=== PATIENT | female | born 1945 | race Caucasian/White ===

== ENCOUNTER 2016-11-17 23:43 | Emergency (ER) | payer MEDICARE, OTHER ==
[~2016-11-17] VITALS: Ht 170.2 cm; Wt 94.8 kg
--- OUTSIDE RECORDS SUMMARY | ~2016-11-17 | XMS ---
Demographics + + + | Address | [address] | | | [place] [address] | + + + | Preferred Language | Unknown | + + + | Marital Status | Unknown | + + + | Buddhist Affiliation | Unknown | + + + | Race | Unknown | + + + | Ethnic Group | Unknown | + + + Author + + + | Author | [facility] | + + + | Organization | [facility] | + + + | Address | 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 | | | diabetes | | | | | | | | mellitus | | | | | | | | with other | | | | | | | | diabetic | | | | | | | | neurologic | | | | | | | | al | | | | | | | | complicati | | | | | | | | on | | | | | | +---------+ + + +--------+ + + | Problem | Renal | N28.9 | | | Active | [id number] | | | insufficie | | | | | | | | ncy | | | | | | +---------+ + + +--------+ + + | Problem | Diabetes | E11.9 | | | Active | [id number] | | | mellitus | | | | | | | | type 2 in | | | | | | | | nonobese | | | | | | +---------+ + + +--------+ + + | Problem | HTN | | I10 | | Active | 48711293 | | | (hypertens | | | | | | | | ion) | | | | | | +---------+ + + +--------+ + + | Problem | Current | Z79.52 | | | Active | [id number] | | | chronic | | | | | [address] | | | use of | | | | | | | | systemic | | | | | | | | steroids | | | | | | +---------+ + + +--------+ + + | Problem | Seropositi | M05.9 | | | Active | 279022626 | | | ve | | | | | | | | rheumatoid | | | | | | | | arthritis | | | | | | +---------+ + + +--------+ + + | Problem | Osteoporos | | M81.0 | | Active | 00699650 | | | is | | | | | | +---------+ + + +--------+ + + | Problem | Microcytos | R71.8 | | | Active | [id number] | | | is | | | | | | +---------+ + + +--------+ + + | Problem | Rheumatoid | M06.9 | | | Active | 41033899 | | | arthritis | | | | | | +---------+ + + +--------+ + + | Problem | Bipolar 1 | | F31.9 | | Active | [id number] | | | disorder | | | | | | +---------+ + + +--------+ + + | Problem | Restless | | G25.81 | | Active | 18645341 | | | leg | | | | | | | | syndrome | | | | | | +---------+ + + +--------+ + + | Problem | ASCVD | I25.10 | | | Active | 86231208 | | | (arteriosc | | | | | | | | lerotic | | | | | | | | cardiovasc | | | | | | | | ular | | | | | | | | disease) | | | | | | +---------+ + + +--------+ + + | Problem | Hyperlipid | | E78.5 | | Active | 71322455 | | | emia | | | | | | +---------+ + + +--------+ + + | Problem | Hypertensi | | I10 | | Active | 68385893 | | | on | | | | | | +---------+ + + +--------+ + + | Problem | Chronic | | G89.4 | | Active | 829329393 | | | pain | | | | | | | | syndrome | | | | | | +---------+ + + +--------+ + + | Problem | Immunosupp | D89.9 | | | Active | [id number] | | | ressed | | | | | | | | status | | | | | | +---------+ + + +--------+ + + | Problem | High risk | Z79.899 | | | Active | 252099710 | | | medication | | | | | | | | s (not | | | | | | | | anticoagul | | | | | | | | ants) | | | | | | | | long-term | | | | | | | | use | | | | | | +---------+ + + +--------+ + + | Problem | At risk | Z91.89 | | | Active | [id number] | | | for | | | | | | | | polypharma | | | | | | | | cy | | | | | | +---------+ + + +--------+ + + | Problem | Blood loss | D50.0 | | | Active | 165148886 | | | anemia | | | | | | +---------+ + + +--------+ + + | Problem | Iron | | D50.9 | | Active | 66126787 | | | deficiency | | | | | | | | anemia | | | | | | +---------+ + + +--------+ + + | Problem | Microcytic | D50.9 | | | Active | 029822205 | | | anemia | | | | | | +---------+ + + +--------+ + + | Problem | Hypothyroi | | E03.9 | | Active | 14876959 | | | dism | | | | | | +---------+ + + +--------+ + + | 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 | | | Active | 81531728 | | | ctive | | | | | | | | disorder | | | | | | +---------+ + + +--------+ + + ALLERGIES + + + + +--------+ | Substance | Reaction | Event Type | Date | Status | + + + + +--------+ | Zoloft | Unknown | Drug Allergy | Sep, | Active | + + + + +--------+ | Tegretol XR | Unknown | Drug Allergy | Sep, | Active | + + + + +--------+ | Depakote | Unknown | Drug Allergy | Sep, | Active | + + + + +--------+ SOCIAL HISTORY No smoking Hx information available PLAN OF CARE + +---------+ | Activity | Details | + +---------+ +---+ | | +---+ + + + | Follow Up | 4 Weeks Reason:null | + + + VITAL SIGNS + + + + | Height | 5ft 7in in | 2016-09-22 | + + + + | Weight | 201.2 lbs | 2016-09-22 | + + + + | BMI | 31.51 kg/m2 | 2016-09-22 | + + + + | Temperature | 98.0 degrees Fahrenheit | 2016-09-22 | + + + + | Heart Rate | 69 /min | 2016-09-22 | + + + + | Blood pressure systolic | 151 mm Hg | 2016-09-22 | + + + + | Blood pressure diastolic | 65 mm Hg | 2016-09-22 | + + + + MEDICATIONS + + + + + + + +--------+ | Medicati | Instruct | Dosage | Frequenc | Start | End Date | Duration | Status | | on | ions | | y | Date | | | | + + + + + + + +--------+ | Trazodon | Orally | 1 tablet | 24h | | | | Active | | e 50 MG | Once a | at | | | | | | | | day | bedtime | | | | | | | | | as | | | | | | | | | needed | | | | | | + + + + + + + +--------+ | Carvedil | Orally | 1 | 12h | | | | Active | | ol 12.5 | twice a | | | | | | | | MG | day | | | | | | | + + + + + + + +--------+ | Prevail | | as | | 16 May, | | | Active | | Adult | | directed | | 2016 | | | | | Brief | | | | | | | | | Large - | | | | | | | | + + + + + + + +--------+ | One | | as | | 07 Sep, | | 30 days | Active | | Touch | | directed | | 2015 | | | | | Ultra 0 | | | | | | | | + + + + + + + +--------+ | GlipiZID | Orally | 1 tablet | 24h | | | | Active | | E 5 MG | Once a | | | | | | | | | day | | | | | | | + + + + + + + +--------+ | Latex | | as | | 16 August, | | | Active | | Gloves | | directed | | 2016 | | | | | Medium - | | | | | | | | + + + + + + + +--------+ | Ropiniro | Orally | 1 tablet | 12h | | | | Active | | le HCl 1 | bid | | | | | | | | MG | | | | | | | | + + + + + + + +--------+ | Vitamin | Orally | 1 | | 08 Oct, | 1 Oct, | 90 days | Active | | D | weekly | capsule | | 2015 | 2016 | | | | (Ergocal | | | | | | | | | ciferol) | | | | | | | | | [id number] | | | | | | | | | UNIT | | | | | | | | + + + + + + + +--------+ | Furosemi | Orally | 1 tablet | 12h | | | | Active | | de 40 MG | Twice a | | | | | | | | | day | | | | | | | + + + + + + + +--------+ | Lisinopr | Orally | TAKE 1 | 24h | | | | Active | | il 40 MG | Once a | TABLET | | | | | | | | day | BY MOUTH | | | | | | | | | EVERY | | | | | | | | | DAY | | | | | | + + + + + + + +--------+ | Metformi | Orally | 2 tablet | 12h | | | 30 days | Active | | n HCl | Twice a | with | | | | | | | 500 MG | day | meals | | | | | | + + + + + + + +--------+ | One | | as | | 07 Sep, | | | Active | | Touch | | directed | | 2016 | | | | | Glucomet | | | | | | | | | er 0 | | | | | | | | + + + + + + + +--------+ | Ferrous | | TAKE 1 | | | | 7 | Active | | Sulfate | | TABLET | | | | | | | 325 (65 | | BY MOUTH | | | | | | | Fe) MG | | EVERY | | | | | | | | | DAY | | | | | | + + + + + + + +--------+ | Lamotrig | Orally | 2 | 12h | | | | Active | | ine 25 | Twice a | tablets | | | | | | | MG | day | | | | | | | + + + + + + + +--------+ | Acetamin | Orally | 2 | | | | | Active | | ophen | Every 4 | | | | | | | | 325 MG | hours | | | | | | | | | PRN | | | | | | | + + + + + + + +--------+ | Aspirin | Orally | 1 tablet | 24h | | | | Active | | Low Dose | Once a | | | | | | | | 81 MG | day | | | | | | | + + + + + + + +--------+ | Neomycin | Ophthalm | 1 into | 4h | | | | Active | | -Polymyx | ic every | affected | | | | | | | in-Grami | 4 hrs | eye | | | | | | | cidin | | | | | | | | | 1.75-100 | | | | | | | | | 00-.025 | | | | | | | | + + + + + + + +--------+ | Gabapent | | TAKE 2 | | | | 30 | Active | | in 300 | | CAPS | | | | | | | MG | | (600MG) | | | | | | | | | BY MOUTH | | | | | | | | | THREE | | | | | | | | | TIMES | | | | | | | | | DAILY | | | | | | + + + + + + + +--------+ | Lantus | Subcutan | as | | 01 Nov, | | 30 | Active | | 100 | eous qhs | directed | | 2016 | | day(s) | | | UNIT/ML | | 15 | | | | | | | | | units | | | | | | | | | per day | | | | | | | | | to start | | | | | | + + + + + + + +--------+ | Sulfasal | Orally | 3 tablet | 12h | | | | Active | | azine | twice a | | | | | | | | 500 MG | day | | | | | | | + + + + + + + +--------+ | Nitrogly | Sublingu | | | | | | Active | | cerin | al 1 | | | | | | | | 0.4 MG | tablet | | | | | | | | | sl every | | | | | | | | | 5 | | | | | | | | | minutes | | | | | | | | | X3 PRN | | | | | | | + + + + + + + +--------+ | Amlodipi | Orally | 1 tablet | | 26 Sep, | | 30 | Active | | ne | every HS | | | 2016 | | day(s) | | | Besylate | | | | | | | | | 10 MG | | | | | | | | + + + + + + + +--------+ | Senna | Orally | 2 | 12h | | | | Active | | 8.6 MG | Twice a | tablets | | | | | | | | day | | | | | | | + + + + + + + +--------+ | Levothyr | Orally | 1 tablet | 24h | | | 30 days | Active | | oxine | Once a | | | | | | | | Sodium | day | | | | | | | | 150 MCG | | | | | | | | + + + + + + + +--------+ | Ranitidi | orally | 1 tab | 24h | | | | Active | | ne 150mg | once a | | | | | | | | | day | | | | | | | + + + + + + + +--------+ | A + D | | as | | 16 May, | | | Active | | Personal | | directed | | 2016 | | | | | Care | | | | | | | | | Wipes - | | | | | | | | + + + + + + + +--------+ | Tramadol | Orally | 1 tablet | | | | | Active | | HCl 50 | every 6 | as | | | | | | | MG | hours | needed | | | | | | | | PRN | | | | | | | + + + + + + + +--------+ | Clonidin | Orally | 1 tablet | 8h | | | 30 days | Active | | e HCl | Three | | | | | | | | 0.1 MG | times a | | | | | | | | | day | | | | | | | + + + + + + + +--------+ | One | | as | | 07 Sep, | | | Active | | Touch | | directed | | 2016 | | | | | Lancets | | | | | | | | + + + + + + + +--------+ | Duloxeti | Orally | take 1 | 24h | | | 30 days | Active | | ne HCl | qd | capsule | | | | | | | 60 MG | | by mouth | | | | | | | | | twice | | | | | | | | | daily | | | | | | + + + + + + + +--------+ | PredniSO | Orally | 1 tablet | 24h | | Sep, | | Active | | NE 10 MG | Once a | | | | 2016 | | | | | day | | | | | | | + + + + + + + +--------+ | Oxybutyn | Orally | 1 tablet | 24h | | | | Active | | in | Once a | | | | | | | | Chloride | day | | | | | | | | 5 MG | | | | | | | | + + + + + + + +--------+ | PredniSO | Orally 2 | 1 tablet | | 12 Sep, | Nov, | 30 | Active | | NE 10 mg | tablets | | | 2016 | 2016 | day(s) | | | | a day | | | | | | | | | for 7 | | | | | | | | | days | | | | | | | | | then one | | | | | | | | | tablet | | | | | | | | | per day | | | | | | | + + + + + + + +--------+ | Magnesiu | Orally | 1 tablet | 24h | | | | Active | | m Oxide | Once a | | | | | | | | 400 MG | day | | | | | | | + + + + + + + +--------+ | Multivit | Orally | 1 | 24h | | | | Active | | olivo | once a | | | | | | | | Adults | day | | | | | | | | 50+ | | | | | | | | + + + + + + + +--------+ | Olanzapi | Orally | 1 tablet | 24h | | | | Active | | ne 2.5 | Once a | | | | | | | | MG | day | | | | | | | + + + + + + + +--------+ RESULTS + +--------+ + + | Name | Result | Date | Reference Range | + +--------+ + + | TSH | | 2016-09-22 | | + +--------+ + + | TSH | | | | + +--------+ + + | Lipid Panel | | 2016-09-22 | | + +--------+ + + | Cholesterol, Total | | | | + +--------+ + + | Triglycerides | | | | + +--------+ + + | HDL Cholesterol | | | | + +--------+ + + | VLDL Cholesterol | | | | | Troy | | | | + +--------+ + + | LDL Cholesterol | | | | | Calc | | | | + +--------+ + + | Basic Metabolic | | 2016-09-22 | | | Panel (8) | | | | + +--------+ + + | Calcium, Serum | | | | + +--------+ + + | Glucose, Serum | | | | + +--------+ + + | BUN | | | | + +--------+ + + | Potassium, Serum | | | | + +--------+ + + | Sodium, Serum | | | | + +--------+ + + | Chloride, Serum | | | | + +--------+ + + | Creatinine, Serum | | | | + +--------+ + + | Carbon Dioxide, | | | | | Total | | | | + +--------+ + + | BUN/Creatinine | | | | | Ratio | | | | + +--------+ + + | Erythrocyte | | 2016-09-22 | | | Sedimentation Rate | | | | | (ESR) | | | | + +--------+ + + | ERYTHROCYTE | | | | | SEDIMENTATION RATE | | | | | (ESR) | | | | + +--------+ + + | Differential Man SV | | 2016-09-22 | | + +--------+ + + | Aniso | | | | + +--------+ + + | Atypical Lymphs | | | | + +--------+ + + | Band Abs | | | | + +--------+ + + | Band Percent | | | | + +--------+ + + | Baso Abs | | | | + +--------+ + + | Baso Percent | | | | + +--------+ + + | Blast Percent | | | | + +--------+ + + | Blasts Abs | | | | + +--------+ + + | Momo Cell | | | | + +--------+ + + | Dohle Bodies | | | | + +--------+ + + | Elliptocyte | | | | + +--------+ + + | Eos Abs | | | | + +--------+ + + | Eos Percent | | | | + +--------+ + + | Hyperseg | | | | + +--------+ + + | Hypochromasia | | | | + +--------+ + + | Immature Cidra Abs | | | | + +--------+ + + | Immature Cidra | | | | | Percent | | | | + +--------+ + + | Lymph Abs | | | | + +--------+ + + | Lymph Percent | | | | + +--------+ + + | Macrocytes | | | | + +--------+ + + | Clark Abs | | | | + +--------+ + + | Clark Percent | | | | + +--------+ + + | Microcytes | | | | + +--------+ + + | Micromeg | | | | + +--------+ + + | Cidra Abs | | | | + +--------+ + + | Cidra Percent | | | | + +--------+ + + | Myelo Abs | | | | + +--------+ + + | Myelo Percent | | | | + +--------+ + + | Neutrophil Abs | | | | + +--------+ + + | Neutrophil Percent | | | | + +--------+ + + | NRBC Percent | | | | + +--------+ + + | Plasmacyte Abs | | | | + +--------+ + + | Plasmacyte Percent | | | | + +--------+ + + | Plat Comment | | | | + +--------+ + + | Plat Est | | | | + +--------+ + + | Poik | | | | + +--------+ + + | Poikilospherocytosi | | | | | s | | | | + +--------+ + + | Polychrom | | | | + +--------+ + + | Promyelo Abs | | | | + +--------+ + + | Promyelo Percent | | | | + +--------+ + + | RBC Morph | | | | + +--------+ + + | Reactive Lymphs | | | | + +--------+ + + | Rouleaux | | | | + +--------+ + + | Schistocyte | | | | + +--------+ + + | Sickle Cell | | | | + +--------+ + + | Smudge Cell | | | | + +--------+ + + | Spherocyte | | | | + +--------+ + + | Stippled RBC | | | | + +--------+ + + | Target Cell | | | | + +--------+ + + | Teardrop Cell | | | | + +--------+ + + | Toxic Gran | | | | + +--------+ + + | Vacuolated WBC | | | | + +--------+ + + | WBC | | | | + +--------+ + + | WBC Morph | | | | + +--------+ + + | HGB A1C A1C | | 2016-09-22 | | + +--------+ + + | Gluc Mean | | | | + +--------+ + + | Hgb A1c | 5.2 | | | + +--------+ + + | CBC with | | 2016-09-22 | | | Differential Count | | | | + +--------+ + + PROCEDURES + + + + + | Procedure | Date Ordered | Related Diagnosis | Body Site | + + + + + | Office Visit, Est | September 22, 2016 | | | | Pt., Level 3 | | | | + + + + + | [facility] MED/CURRENT | September 22, 2016 | | | | MED MERGE | | | | + + + + + IMMUNIZATIONS No Known Immunizations"
--- OUTSIDE RECORDS SUMMARY | ~2016-11-17 | XMS ---
Demographics + + + | Address | [address] | | | [place] [address] | + + + | Preferred Language | Unknown | + + + | Marital Status | Unknown | + + + | Jain Affiliation | Unknown | + + + | Race | Unknown | + + + | Ethnic Group | Unknown | + + + Author + + + | Author | [facility] | + + + | Organization | [facility] | + + + | Address | 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 | | Active | [id number] | | | diabetes | | | [...] | N28.9 | | | Active | 287992324 | | | insufficie | | | | | | | | ncy | | | | | | +---------+ + + +--------+ + + | Problem | Diabetes | E11.9 | | | Active | 518697442 | | | mellitus | | | | | | | | type 2 in | | | | | | | | nonobese | | | | | | +---------+ + + +--------+ + + | Problem | HTN | | I10 | | Active | 52564733 | | | (hypertens | | | | | | | | ion) | | | | | | +---------+ + + +--------+ + + | Problem | Current | Z79.52 | | | Active | [id number] | | | chronic | | | | | [address] | | | use of | | | | | | | | systemic | | | | | | | | steroids | | | | | | +---------+ + + +--------+ + + | Problem | Seropositi | M05.9 | | | Active | [id number] | | | ve | | | | | | | | rheumatoid | | | | | | | | arthritis | | | | | | +---------+ + + +--------+ + + | Problem | Osteoporos | | M81.0 | | Active | 50401577 | | | is | | | | | | +---------+ + + +--------+ + + | Problem | Microcytos | R71.8 | | | Active | 251501504 | | | is | | | | | | +---------+ + + +--------+ + + | Problem | Rheumatoid | M06.9 | | | Active | 51686429 | | | arthritis | | | | | | +---------+ + + +--------+ + + | Problem | Bipolar 1 | | F31.9 | | Active | 311643550 | | | disorder | | | | | | +---------+ + + +--------+ + + | Problem | Restless | | G25.81 | | Active | 80347158 | | | leg | | | | | | | | syndrome | | | | | | +---------+ + + +--------+ + + | Problem | ASCVD | I25.10 | | | Active | 96448639 | | | (arteriosc | | | | | | | | lerotic | | | | | | | | cardiovasc | | | | | | | | ular | | | | | | | | disease) | | | | | | +---------+ + + +--------+ + + | Problem | Hyperlipid | | E78.5 | | Active | 14177359 | | | emia | | | | | | +---------+ + + +--------+ + + | Problem | Hypertensi | | I10 | | Active | 59755200 | | | on | | | | | | +---------+ + + +--------+ + + | Problem | Chronic | | G89.4 | | Active | 513142207 | | | pain | | | | | | | | syndrome | | | | | | +---------+ + + +--------+ + + | Problem | Immunosupp | D89.9 | | | Active | 349757554 | | | ressed | | | | | | | | status | | | | | | +---------+ + + +--------+ + + | Problem | High risk | Z79.899 | | | Active | 743859183 | | | medication | | | [...] | Z91.89 | | | Active | 660909743 | | | for | | | | | | | | polypharma | | | | | | | | cy | | | | | | +---------+ + + +--------+ + + | Problem | Blood loss | D50.0 | | | Active | 131098938 | | | anemia | | | | | | +---------+ + + +--------+ + + | Problem | Iron | | D50.9 | | Active | 41194938 | | | deficiency | | | | | | | | anemia | | | | | | +---------+ + + +--------+ + + | Problem | Microcytic | D50.9 | | | Active | 648768052 | | | anemia | | | | | | +---------+ + + +--------+ + + | Problem | Hypothyroi | | E03.9 | | Active | 09653481 | | | dism | | | | | | +---------+ + + +--------+ + + | 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
[~2016-11-17 23:43] MED LIST: AMLODIPINE BESY10 MG PO; AZULFIDINE500 M1 PO; CHLORPROMAZINE100 MG PO; CLINDAMYCIN HC300 MG PO; CLONIDINE HCL0.1 MG PO; DOCUSATE SODIU100 MG PO; FERROUS SULFAT325 MG PO; GABAPENTIN100 MG PO; GLIPIZIDE XL5 MG PO; GLIPIZIDE5 MG PO; HYDROCODON-ACE1 EA10 PO; LAMOTRIGINE25 MG PO; LEVOTHYROXINE125 MCG PO; LISINOPRIL20 MG PO; LYRICA75 MG PO; METFORMIN HCL1000 MG PO; METFORMIN HCL500 MG PO; MIRALAX17 GM PO; OLANZAPINE2.5 MG PO; OXYBUTYNIN CHLOR5 MG PO; PANTOPRAZOLE SO40 MG PO; PREDNISONE5 MG PO; REQUIP0.5 MG PO; RESTORIL15 MG PO; SENNA8.6 MG PO; TORSEMIDE5 MG PO; TRAZODONE HCL50 MG PO
[2016-11-18] MEDS ORDERED: LO-DOSE ASPIRIN81 MG PO (00:19)
[2016-11-18] MEDS ORDERED: CARVEDILOL12.5 MG PO (00:20)
[2016-11-18] MEDS ORDERED: CLONIDINE1 EAC2 TD (00:24)
[2016-11-18] MEDS ORDERED: MAG-OXIDE400 MG PO (00:28)
[2016-11-18] MEDS ORDERED: MULTIVITAMINS1 EAC8 PO (00:31)
[2016-11-18] MEDS ORDERED: NEO OPTH (00:35)
[2016-11-18] MEDS ORDERED: [UNRECOGNIZED DRUG - OTHER] OPTH (00:35)
[2016-11-18] MEDS ORDERED: POLY OPTH (00:35)
[2016-11-18] MEDS ORDERED: RANITIDINE HCL150 M1 PO (00:38)
[2016-11-18] MEDS ORDERED: VITAMIN D250000 UNIT PO ×2 (00:44→00:46)
[2016-11-18] MEDS ORDERED: XELJANZ XR11 MG PO (00:47)
[2016-11-18] MEDS ORDERED: TRAMADOL HCL50 MG PO (00:49)
[2016-11-18] MEDS ORDERED: TYLENOL325 MG PO (00:51)
[2016-11-18] MEDS ORDERED: FUROSEMIDE40 MG PO (00:53)
== END 2016-11-18 01:41 | disposition home or self-care (01) ==
LOC: ED 23:43
DX: S66.911A Strain of unspecified muscle, fascia and tendon at wrist and hand level, right hand, initial encounter (principal); M79.601 Pain in right arm; G89.29 Other chronic pain; E11.9 Type 2 diabetes mellitus without complications; M06.9 Rheumatoid arthritis, unspecified; I10 Essential (primary) hypertension; Z87.891 Personal history of nicotine dependence; Z90.710 Acquired absence of both cervix and uterus; Z98.890 Other specified postprocedural states; Z88.8 Allergy status to other drugs, medicaments and biological substances; Z79.899 Other long term (current) drug therapy; Z79.52 Long term (current) use of systemic steroids; Z79.82 Long term (current) use of aspirin; Z79.84 Long term (current) use of oral hypoglycemic drugs; X58.XXXA Exposure to other specified factors, initial encounter
CPT/HCPCS: 73110; 99283

== ENCOUNTER 2016-11-29 03:53 | Emergency (ER) | payer MEDICARE, OTHER ==
[~2016-11-29] VITALS: Ht 170.2 cm; Wt 92.5 kg
--- OUTSIDE RECORDS SUMMARY | ~2016-11-29 | XMS ---
Demographics + + + | Address | [address] | | | [place] [address] | + + + | Preferred Language | Unknown | + + + | Marital Status | Unknown | + + + | Religion Affiliation | Unknown | + + + | Race | Unknown | + + + | Ethnic Group | Unknown | + + + Author + + + | Author | [facility] | + + + | Organization | [facility] | + + + | Address | 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 | | Active | [id number] | | | diabetes | | | [...] | N28.9 | | | Active | 913257209 | | | insufficie | | | | | | | | ncy | | | | | | +---------+ + + +--------+ + + | Problem | Diabetes | E11.9 | | | Active | 420137368 | | | mellitus | | | | | | | | type 2 in | | | | | | | | nonobese | | | | | | +---------+ + + +--------+ + + | Problem | HTN | | I10 | | Active | 05239842 | | | (hypertens | | | | | | | | ion) | | | | | | +---------+ + + +--------+ + + | Problem | Current | Z79.52 | | | Active | [id number] | | | chronic | | | | | [address] | | | use of | | | | | | | | systemic | | | | | | | | steroids | | | | | | +---------+ + + +--------+ + + | Problem | Seropositi | M05.9 | | | Active | 587851040 | | | ve | | | | | | | | rheumatoid | | | | | | | | arthritis | | | | | | +---------+ + + +--------+ + + | Problem | Osteoporos | | M81.0 | | Active | 07755642 | | | is | | | | | | +---------+ + + +--------+ + + | Problem | Microcytos | R71.8 | | | Active | 148581053 | | | is | | | | | | +---------+ + + +--------+ + + | Problem | Rheumatoid | M06.9 | | | Active | 32453976 | | | arthritis | | | | | | +---------+ + + +--------+ + + | Problem | Bipolar 1 | | F31.9 | | Active | 955430655 | | | disorder | | | | | | +---------+ + + +--------+ + + | Problem | Restless | | G25.81 | | Active | 13400001 | | | leg | | | | | | | | syndrome | | | | | | +---------+ + + +--------+ + + | Problem | ASCVD | I25.10 | | | Active | 38238559 | | | (arteriosc | | | | | | | | lerotic | | | | | | | | cardiovasc | | | | | | | | ular | | | | | | | | disease) | | | | | | +---------+ + + +--------+ + + | Problem | Hyperlipid | | E78.5 | | Active | [id number] | | | emia | | | | | | +---------+ + + +--------+ + + | Problem | Hypertensi | | I10 | | Active | [id number] | | | on | | | | | | +---------+ + + +--------+ + + | Problem | Chronic | | G89.4 | | Active | [id number] | | | pain | | | | | | | | syndrome | | | | | | +---------+ + + +--------+ + + | Problem | Immunosupp | D89.9 | | | Active | [id number] | | | ressed | | | | | | | | status | | | | | | +---------+ + + +--------+ + + | Problem | High risk | Z79.899 | | | Active | [id number] | | | medication | | | [...] | Z91.89 | | | Active | [id number] | | | for | | | | | | | | polypharma | | | | | | | | cy | | | | | | +---------+ + + +--------+ + + | Problem | Blood loss | D50.0 | | | Active | [id number] | | | anemia | | | | | | +---------+ + + +--------+ + + | Problem | Iron | | D50.9 | | Active | [id number] | | | deficiency | | | | | | | | anemia | | | | | | +---------+ + + +--------+ + + | Problem | Microcytic | D50.9 | | | Active | [id number] | | | anemia | | | | | | +---------+ + + +--------+ + + | Problem | Hypothyroi | | E03.9 | | Active | 28162850 | | | dism | | | | | | +---------+ + + +--------+ + + | 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 | | | Active | [id number] | | | ctive | | | | | | | | disorder | | | | | | +---------+ + + +--------+ + + ALLERGIES Unknown Allergies SOCIAL HISTORY No smoking Hx information available PLAN OF CARE VITAL SIGNS MEDICATIONS Unknown Medications RESULTS No Results PROCEDURES No Known procedures IMMUNIZATIONS No Known Immunizations"
--- OUTSIDE RECORDS SUMMARY | ~2016-11-29 | XMS ---
Demographics + + + | Address | [address] | | | [place] [address] | + + + | Preferred Language | Unknown | + + + | Marital Status | Unknown | + + + | Christian Affiliation | Unknown | + + + | Race | Unknown | + + + | Ethnic Group | Unknown | + + + Author + + + | Author | [facility] | + + + | Organization | [facility] | + + + | Address | [address] | | | [place] [address] | + + + | Phone | | + + + Care Team Providers + + + + | Care Science Editor Name | Role | Phone | + + + + Unavailable | Unavailable | + + + + PROBLEMS +---------+ + + +--------+ + + | Type | Condition | ICD9-CM | [id number] | Onset | Condition | SNOMED | | | | Code | Code | Dates | Status | Code | +---------+ + + +--------+ + + | Problem | Type 2 | | E11.49 | | Active | [id number] | | | diabetes | | | [...] | N28.9 | | | Active | 300124242 | | | insufficie | | | | | | | | ncy | | | | | | +---------+ + + +--------+ + + | Problem | Diabetes | E11.9 | | | Active | 774530224 | | | mellitus | | | | | | | | type 2 in | | | | | | | | nonobese | | | | | | +---------+ + + +--------+ + + | Problem | HTN | | I10 | | Active | 87769693 | | | (hypertens | | | | | | | | ion) | | | | | | +---------+ + + +--------+ + + | Problem | Current | Z79.52 | | | Active | [id number] | | | chronic | | | | | 435[address] | | | use of | | | | | | | | systemic | | | | | | | | steroids | | | | | | +---------+ + + +--------+ + + | Problem | Seropositi | M05.9 | | | Active | 923264273 | | | ve | | | | | | | | rheumatoid | | | | | | | | arthritis | | | | | | +---------+ + + +--------+ + + | Problem | Osteoporos | | M81.0 | | Active | 22917945 | | | is | | | | | | +---------+ + + +--------+ + + | Problem | Microcytos | R71.8 | | | Active | 220440827 | | | is | | | | | | +---------+ + + +--------+ + + | Problem | Rheumatoid | M06.9 | | | Active | 24060829 | | | arthritis | | | | | | +---------+ + + +--------+ + + | Problem | Bipolar 1 | | F31.9 | | Active | 731396779 | | | disorder | | | | | | +---------+ + + +--------+ + + | Problem | Restless | | G25.81 | | Active | 29295974 | | | leg | | | | | | | | syndrome | | | | | | +---------+ + + +--------+ + + | Problem | ASCVD | I25.10 | | | Active | 16135800 | | | (arteriosc | | | | | | | | lerotic | | | | | | | | cardiovasc | | | | | | | | ular | | | | | | | | disease) | | | | | | +---------+ + + +--------+ + + | Problem | Hyperlipid | | E78.5 | | Active | 71771857 | | | emia | | | | | | +---------+ + + +--------+ + + | Problem | Hypertensi | | I10 | | Active | 26894720 | | | on | | | | | | +---------+ + + +--------+ + + | Problem | Chronic | | G89.4 | | Active | 282987742 | | | pain | | | | | | | | syndrome | | | | | | +---------+ + + +--------+ + + | Problem | Immunosupp | D89.9 | | | Active | 855635343 | | | ressed | | | | | | | | status | | | | | | +---------+ + + +--------+ + + | Problem | High risk | Z79.899 | | | Active | 919054397 | | | medication | | | [...] | Z91.89 | | | Active | 989759632 | | | for | | | | | | | | polypharma | | | | | | | | cy | | | | | | +---------+ + + +--------+ + + | Problem | Blood loss | D50.0 | | | Active | 437423011 | | | anemia | | | | | | +---------+ + + +--------+ + + | Problem | Iron | | D50.9 | | Active | 50445503 | | | deficiency | | | | | | | | anemia | | | | | | +---------+ + + +--------+ + + | Problem | Microcytic | D50.9 | | | Active | 654711532 | | | anemia | | | | | | +---------+ + + +--------+ + + | Problem | Hypothyroi | | E03.9 | | Active | 33489381 | | | dism | | | | | | +---------+ + + +--------+ + + | 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
--- OUTSIDE RECORDS SUMMARY | ~2016-11-29 | XMS ---
Demographics + + + | Address | [address] | | | [place] [address] | + + + | Preferred Language | Unknown | + + + | Marital Status | Unknown | + + + | Gnosticism Affiliation | Unknown | + + + | Race | Unknown | + + + | Ethnic Group | Unknown | + + + Author + + + | Author | [facility] | + + + | Organization | [facility] | + + + | Address | [address] | | | [place] [address] | + + + | Phone | | + + + Care Team Providers + + + + | Care Hog Scraper Name | Role | Phone | + + + + Unavailable | Unavailable | + + + + PROBLEMS +---------+ + + +--------+ + + | Type | Condition | ICD9-CM | [id number] | Onset | Condition | SNOMED | | | | Code | Code | Dates | Status | Code | +---------+ + + +--------+ + + | Problem | Type 2 | | E11.49 | | Active | [id number] | | | diabetes | | | [...] | N28.9 | | | Active | 823420082 | | | insufficie | | | | | | | | ncy | | | | | | +---------+ + + +--------+ + + | Problem | Diabetes | E11.9 | | | Active | 785983529 | | | mellitus | | | | | | | | type 2 in | | | | | | | | nonobese | | | | | | +---------+ + + +--------+ + + | Problem | HTN | | I10 | | Active | 03504943 | | | (hypertens | | | | | | | | ion) | | | | | | +---------+ + + +--------+ + + | Problem | Current | Z79.52 | | | Active | [id number] | | | chronic | | | | | 8[address]59 | | | use of | | | | | | | | systemic | | | | | | | | steroids | | | | | | +---------+ + + +--------+ + + | Problem | Seropositi | M05.9 | | | Active | 970018038 | | | ve | | | | | | | | rheumatoid | | | | | | | | arthritis | | | | | | +---------+ + + +--------+ + + | Problem | Osteoporos | | M81.0 | | Active | 20194870 | | | is | | | | | | +---------+ + + +--------+ + + | Problem | Microcytos | R71.8 | | | Active | 014343884 | | | is | | | | | | +---------+ + + +--------+ + + | Problem | Rheumatoid | M06.9 | | | Active | 04078816 | | | arthritis | | | | | | +---------+ + + +--------+ + + | Problem | Bipolar 1 | | F31.9 | | Active | 134639756 | | | disorder | | | | | | +---------+ + + +--------+ + + | Problem | Restless | | G25.81 | | Active | 55610334 | | | leg | | | | | | | | syndrome | | | | | | +---------+ + + +--------+ + + | Problem | ASCVD | I25.10 | | | Active | 29801684 | | | (arteriosc | | | | | | | | lerotic | | | | | | | | cardiovasc | | | | | | | | ular | | | | | | | | disease) | | | | | | +---------+ + + +--------+ + + | Problem | Hyperlipid | | E78.5 | | Active | 21661871 | | | emia | | | | | | +---------+ + + +--------+ + + | Problem | Hypertensi | | I10 | | Active | 43462331 | | | on | | | | | | +---------+ + + +--------+ + + | Problem | Chronic | | G89.4 | | Active | 527240035 | | | pain | | | | | | | | syndrome | | | | | | +---------+ + + +--------+ + + | Problem | Immunosupp | D89.9 | | | Active | 945056556 | | | ressed | | | | | | | | status | | | | | | +---------+ + + +--------+ + + | Problem | High risk | Z79.899 | | | Active | 296346973 | | | medication | | | [...] | Z91.89 | | | Active | 845971704 | | | for | | | | | | | | polypharma | | | | | | | | cy | | | | | | +---------+ + + +--------+ + + | Problem | Blood loss | D50.0 | | | Active | 490153078 | | | anemia | | | | | | +---------+ + + +--------+ + + | Problem | Iron | | D50.9 | | Active | 19506831 | | | deficiency | | | | | | | | anemia | | | | | | +---------+ + + +--------+ + + | Problem | Microcytic | D50.9 | | | Active | 454358042 | | | anemia | | | | | | +---------+ + + +--------+ + + | Problem | Hypothyroi | | E03.9 | | Active | 86269030 | | | dism | | | | | | +---------+ + + +--------+ + + | 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
--- OUTSIDE RECORDS SUMMARY | ~2016-11-29 | XMS ---
Demographics + + + | Address | [address] | | | [place] [address] | + + + | Preferred Language | Unknown | + + + | Marital Status | Unknown | + + + | Christianity Affiliation | Unknown | + + + | Race | Unknown | + + + | Ethnic Group | Unknown | + + + Author + + + | Author | [facility] | + + + | Organization | [facility] | + + + | Address | [address] | | | [place] [address] | + + + | Phone | | + + + Care Team Providers + + + + | Care Phlebotomist Lab Assistant Name | Role | Phone | + + + + Unavailable | Unavailable | + + + + PROBLEMS +---------+ + + +--------+ + + | Type | Condition | ICD9-CM | YES12-QD | Onset | Condition | SNOMED | | | | Code | Code | Dates | Status | Code | +---------+ + + +--------+ + + | Problem | Type 2 | | E11.49 | | Active | [id number] | | | diabetes | | | [...] | N28.9 | | | Active | 089976450 | | | insufficie | | | | | | | | ncy | | | | | | +---------+ + + +--------+ + + | Problem | Diabetes | E11.9 | | | Active | 706132093 | | | mellitus | | | | | | | | type 2 in | | | | | | | | nonobese | | | | | | +---------+ + + +--------+ + + | Problem | HTN | | I10 | | Active | 86218125 | | | (hypertens | | | | | | | | ion) | | | | | | +---------+ + + +--------+ + + | Problem | Current | Z79.52 | | | Active | [id number] | | | chronic | | | | | [address] | | | use of | | | | | | | | systemic | | | | | | | | steroids | | | | | | +---------+ + + +--------+ + + | Problem | Seropositi | M05.9 | | | Active | 973520218 | | | ve | | | | | | | | rheumatoid | | | | | | | | arthritis | | | | | | +---------+ + + +--------+ + + | Problem | Osteoporos | | M81.0 | | Active | 56668884 | | | is | | | | | | +---------+ + + +--------+ + + | Problem | Microcytos | R71.8 | | | Active | 682494639 | | | is | | | | | | +---------+ + + +--------+ + + | Problem | Rheumatoid | M06.9 | | | Active | 59910295 | | | arthritis | | | | | | +---------+ + + +--------+ + + | Problem | Bipolar 1 | | F31.9 | | Active | 493046992 | | | disorder | | | | | | +---------+ + + +--------+ + + | Problem | Restless | | G25.81 | | Active | 17310607 | | | leg | | | | | | | | syndrome | | | | | | +---------+ + + +--------+ + + | Problem | ASCVD | I25.10 | | | Active | 72234489 | | | (arteriosc | | | | | | | | lerotic | | | | | | | | cardiovasc | | | | | | | | ular | | | | | | | | disease) | | | | | | +---------+ + + +--------+ + + | Problem | Hyperlipid | | E78.5 | | Active | 04954591 | | | emia | | | | | | +---------+ + + +--------+ + + | Problem | Hypertensi | | I10 | | Active | 80306314 | | | on | | | | | | +---------+ + + +--------+ + + | Problem | Chronic | | G89.4 | | Active | 623814237 | | | pain | | | | | | | | syndrome | | | | | | +---------+ + + +--------+ + + | Problem | Immunosupp | D89.9 | | | Active | 324217833 | | | ressed | | | | | | | | status | | | | | | +---------+ + + +--------+ + + | Problem | High risk | Z79.899 | | | Active | 007479349 | | | medication | | | [...] | Z91.89 | | | Active | 243636260 | | | for | | | | | | | | polypharma | | | | | | | | cy | | | | | | +---------+ + + +--------+ + + | Problem | Blood loss | D50.0 | | | Active | 906370100 | | | anemia | | | | | | +---------+ + + +--------+ + + | Problem | Iron | | D50.9 | | Active | 53504365 | | | deficiency | | | | | | | | anemia | | | | | | +---------+ + + +--------+ + + | Problem | Microcytic | D50.9 | | | Active | 643278474 | | | anemia | | | | | | +---------+ + + +--------+ + + | Problem | Hypothyroi | | E03.9 | | Active | 43388028 | | | dism | | | | | | +---------+ + + +--------+ + + | 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
[~2016-11-29 03:53] MED LIST changes: +CARVEDILOL12.5 MG PO; +CLONIDINE1 EAC2 TD; +FUROSEMIDE40 MG PO; +LO-DOSE ASPIRIN81 MG PO; +MAG-OXIDE400 MG PO; +MULTIVITAMINS1 EAC8 PO; +NEO OPTH; +POLY OPTH; +RANITIDINE HCL150 M1 PO; +TRAMADOL HCL50 MG PO; +TYLENOL325 MG PO; +VITAMIN D250000 UNIT PO; +XELJANZ XR11 MG PO; +[UNRECOGNIZED DRUG - OTHER] OPTH
--- NOTE | 2016-11-29 13:19 | EKG ---
[facility] [address] [facility] [place], [place] [address] Signed Normal sinus rhythm Normal ECG No previous ECGs available Confirmed by GISELA CRYSTAL MD ([id number]) on 11/29/2016 1:19:02 PM Electronically Signed By: GISELA CRYSTAL MD 11/29/16 1319 PATIENT NAME: BRENNA ASHLEY Electrocardiogram DATE OF : 47 PHYSICIAN: GISELA CRYSTAL MD REPORT #: [id number] REPORT IS CONFIDENTIAL AND NOT TO BE RELEASED WITHOUT AUTHORIZATION
== END 2016-11-29 05:30 | disposition home or self-care (01) ==
LOC: ED 03:53
DX: R07.9 Chest pain, unspecified (principal); M79.601 Pain in right arm; G89.29 Other chronic pain; E11.9 Type 2 diabetes mellitus without complications; I10 Essential (primary) hypertension; Z87.891 Personal history of nicotine dependence; Z90.710 Acquired absence of both cervix and uterus; Z88.8 Allergy status to other drugs, medicaments and biological substances; Z79.899 Other long term (current) drug therapy; Z79.52 Long term (current) use of systemic steroids; Z79.84 Long term (current) use of oral hypoglycemic drugs; Z79.891 Long term (current) use of opiate analgesic
CPT/HCPCS: 80053; 84484; 85025; 93005; 93010; 96374; 99284; J1885

== ENCOUNTER 2016-12-17 16:59 | Emergency (ER) | payer MEDICARE, OTHER ==
[~2016-12-17] VITALS: Ht 170.2 cm; Wt 92.5 kg
--- OUTSIDE RECORDS SUMMARY | ~2016-12-17 | XMS ---
Demographics + + + | Address | [address] | | | [place] [address] | + + + | Preferred Language | Unknown | + + + | Marital Status | Unknown | + + + | Hinduism Affiliation | Unknown | + + + | Race | Unknown | + + + | Ethnic Group | Unknown | + + + Author + + + | Author | [facility] | + + + | Organization | [facility] | + + + | Address | [address] | | | [place] [address] | + + + | Phone | | + + + Care Team Providers + + + + | Care Cw Operator Name | Role | Phone | + + + + Unavailable | Unavailable | + + + + PROBLEMS +---------+ + + +--------+ + + | Type | Condition | ICD9-CM | EFZ72-BT | Onset | Condition | SNOMED | | | | Code | Code | Dates | Status | Code | +---------+ + + +--------+ + + | Problem | Type 2 | | E11.49 | | Active | 291313651 | | | diabetes | | | [...] | N28.9 | | | Active | 646433836 | | | insufficie | | | | | | | | ncy | | | | | | +---------+ + + +--------+ + + | Problem | Diabetes | E11.9 | | | Active | 831344372 | | | mellitus | | | | | | | | type 2 in | | | | | | | | nonobese | | | | | | +---------+ + + +--------+ + + | Problem | HTN | | I10 | | Active | 22642255 | | | (hypertens | | | | | | | | ion) | | | | | | +---------+ + + +--------+ + + | Problem | Current | Z79.52 | | | Active | 1275061069 | | | chronic | | | | | 70617 | | | use of | | | | | | | | systemic | | | | | | | | steroids | | | | | | +---------+ + + +--------+ + + | Problem | Seropositi | M05.9 | | | Active | 776084767 | | | ve | | | | | | | | rheumatoid | | | | | | | | arthritis | | | | | | +---------+ + + +--------+ + + | Problem | Osteoporos | | M81.0 | | Active | 62302963 | | | is | | | | | | +---------+ + + +--------+ + + | Problem | Microcytos | R71.8 | | | Active | 100426355 | | | is | | | | | | +---------+ + + +--------+ + + | Problem | Rheumatoid | M06.9 | | | Active | 01708609 | | | arthritis | | | | | | +---------+ + + +--------+ + + | Problem | Bipolar 1 | | F31.9 | | Active | 175059641 | | | disorder | | | | | | +---------+ + + +--------+ + + | Problem | Restless | | G25.81 | | Active | 93436459 | | | leg | | | | | | | | syndrome | | | | | | +---------+ + + +--------+ + + | Problem | ASCVD | I25.10 | | | Active | 34111703 | | | (arteriosc | | | | | | | | lerotic | | | | | | | | cardiovasc | | | | | | | | ular | | | | | | | | disease) | | | | | | +---------+ + + +--------+ + + | Problem | Hyperlipid | | E78.5 | | Active | 86962906 | | | emia | | | | | | +---------+ + + +--------+ + + | Problem | Hypertensi | | I10 | | Active | 01239763 | | | on | | | | | | +---------+ + + +--------+ + + | Problem | Chronic | | G89.4 | | Active | 329629595 | | | pain | | | | | | | | syndrome | | | | | | +---------+ + + +--------+ + + | Problem | Immunosupp | D89.9 | | | Active | 125302881 | | | ressed | | | | | | | | status | | | | | | +---------+ + + +--------+ + + | Problem | High risk | Z79.899 | | | Active | 173378259 | | | medication | | | [...] | Z91.89 | | | Active | 397295946 | | | for | | | | | | | | polypharma | | | | | | | | cy | | | | | | +---------+ + + +--------+ + + | Problem | Blood loss | D50.0 | | | Active | 910256917 | | | anemia | | | | | | +---------+ + + +--------+ + + | Problem | Iron | | D50.9 | | Active | 08290819 | | | deficiency | | | | | | | | anemia | | | | | | +---------+ + + +--------+ + + | Problem | Microcytic | D50.9 | | | Active | 625615925 | | | anemia | | | | | | +---------+ + + +--------+ + + | Problem | Hypothyroi | | E03.9 | | Active | 66806023 | | | dism | | | | | | +---------+ + + +--------+ + + | 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 | | | Active | 66793875 | | | ctive | | | | | | | | disorder | | | | | | +---------+ + + +--------+ + + ALLERGIES + + + + +--------+ | Substance | Reaction | Event Type | Date | Status | + + + + +--------+ | Zoloft | Unknown | Drug Allergy | Oct, | Active | + + + + +--------+ | Tegretol XR | Unknown | Drug Allergy | Oct, | Active | + + + + +--------+ | Depakote | Unknown | Drug Allergy | Oct, | Active | + + + + +--------+ SOCIAL HISTORY No smoking Hx information available PLAN OF CARE + +---------+ | Activity | Details | + +---------+ +---+ | | +---+ + + + | Follow Up | 4 Weeks Reason:null | + + + VITAL SIGNS + + + + | Height | 5ft 7in in | 2016-10-20 | + + + + | Weight | 204 lbs | 2016-10-20 | + + + + | BMI | 31.95 kg/m2 | 2016-10-20 | + + + + | Temperature | 98.5 degrees Fahrenheit | 2016-10-20 | + + + + | Heart Rate | 64 /min | 2016-10-20 | + + + + | Blood pressure systolic | 164 mm Hg | 2016-10-20 | + + + + | Blood pressure diastolic | 71 mm Hg | 2016-10-20 | + + + + MEDICATIONS + [...] 2 | 1 tablet | | 12 Magdy, | 11 Nov, | 30 | Active | | NE 10 mg | tablets | | | 2017 | 2017 | day(s) | | | | a [...] One | | as | | 07 Dec, | | 30 days | Active | | Touch | | directed | | 2015 | | | | | Ultra 0 | | | | | | | | + + + + + + + +--------+ | One | | as | | 07 Dec, | | | Active | | Touch | | directed | | 2015 | | | | | Glucomet | [...] | Orally | 1 | | 08 Liam, | 1 Oct, | 90 days | Active | | D | weekly | capsule | | 2015 | 2016 | | | | (Ergocal | | | | | | | | | ciferol) | | | | | | | | | [address] | | | | | | | [...] | eous qhs | directed | | 2015 | | day(s) | | | UNIT/ML [...] | Adult | | directed | | 2017 | | | | | Brief | [...] + + + + + +--------+ | Xeljanz | Orally | 1 tablet | 24h | | | | Active | | XR 11 MG | Once a | | | | | | | | | day | | | | | | | + + + + + + + +--------+ | Latex | | as | | 16 August, | | | Active | | Gloves | | directed | | 2017 | | | | | Medium - [...] Range | + +--------+ + + | Comprehensive | | 2016-10-20 | | | Metabolic Panel | | | | + +--------+ + + | C-Reactive Protein | | 2016-10-20 | | + +--------+ + + | C-REACTIVE PROTEIN | | | | + +--------+ + + | Erythrocyte | | 2016-10-20 | | | Sedimentation Rate | | | | | (ESR) | | | | + +--------+ + + | ERYTHROCYTE | | | | | SEDIMENTATION RATE | | | | | (ESR) | | | | + +--------+ + + | CBC with | | 2016-10-20 | | | Differential Count | | | | + +--------+ + + PROCEDURES + + + + + | Procedure | Date Ordered | Related Diagnosis | Body Site | + + + + + | Office Visit, Est | October 20, 2016 | | | | Pt., Level 3 | | | | + + + + + | [facility] MED/CURRENT | October 20, 2016 | | | | MED MERGE | | | | + + + + + IMMUNIZATIONS No Known Immunizations"
--- OUTSIDE RECORDS SUMMARY | ~2016-12-17 | XMS ---
Demographics + + + | Address | [address] | | | [place] [address] | + + + | Preferred Language | Unknown | + + + | Marital Status | Unknown | + + + | Yazidism Affiliation | Unknown | + + + | Race | Unknown | + + + | Ethnic Group | Unknown | + + + Author + + + | Author | [facility] | + + + | Organization | [facility] | + + + | Address | [address] | | | [place] [address] | + + + | Phone | | + + + Care Team Providers + + + + | Care Endoscopy Specialty Technician Name | Role | Phone | + + + + Unavailable | Unavailable | + + + + PROBLEMS +---------+ + + +--------+ + + | Type | Condition | ICD9-CM | [id number] | Onset | Condition | SNOMED | | | | Code | Code | Dates | Status | Code | +---------+ + + +--------+ + + | Problem | Type 2 | | E11.49 | | Active | [id number] | | | diabetes | | | [...] | N28.9 | | | Active | [id number] | | | insufficie | | | | | | | | ncy | | | | | | +---------+ + + +--------+ + + | Problem | Diabetes | E11.9 | | | Active | 712321737 | | | mellitus | | | | | | | | type 2 in | | | | | | | | nonobese | | | | | | +---------+ + + +--------+ + + | Problem | HTN | | I10 | | Active | 05988287 | | | (hypertens | | | | | | | | ion) | | | | | | +---------+ + + +--------+ + + | Problem | Current | Z79.52 | | | Active | [id number] | | | chronic | | | | | 23050 | | | use of | | | | | | | | systemic | | | | | | | | steroids | | | | | | +---------+ + + +--------+ + + | Problem | Seropositi | M05.9 | | | Active | 241437487 | | | ve | | | | | | | | rheumatoid | | | | | | | | arthritis | | | | | | +---------+ + + +--------+ + + | Problem | Osteoporos | | M81.0 | | Active | 47397098 | | | is | | | | | | +---------+ + + +--------+ + + | Problem | Microcytos | R71.8 | | | Active | 777027580 | | | is | | | | | | +---------+ + + +--------+ + + | Problem | Rheumatoid | M06.9 | | | Active | 64788760 | | | arthritis | | | | | | +---------+ + + +--------+ + + | Problem | Bipolar 1 | | F31.9 | | Active | 577095585 | | | disorder | | | | | | +---------+ + + +--------+ + + | Problem | Restless | | G25.81 | | Active | 70889532 | | | leg | | | | | | | | syndrome | | | | | | +---------+ + + +--------+ + + | Problem | ASCVD | I25.10 | | | Active | 40170705 | | | (arteriosc | | | | | | | | lerotic | | | | | | | | cardiovasc | | | | | | | | ular | | | | | | | | disease) | | | | | | +---------+ + + +--------+ + + | Problem | Hyperlipid | | E78.5 | | Active | 23021136 | | | emia | | | | | | +---------+ + + +--------+ + + | Problem | Hypertensi | | I10 | | Active | 73831918 | | | on | | | | | | +---------+ + + +--------+ + + | Problem | Chronic | | G89.4 | | Active | 672359924 | | | pain | | | | | | | | syndrome | | | | | | +---------+ + + +--------+ + + | Problem | Immunosupp | D89.9 | | | Active | 047936808 | | | ressed | | | | | | | | status | | | | | | +---------+ + + +--------+ + + | Problem | High risk | Z79.899 | | | Active | 587009035 | | | medication | | | [...] | Z91.89 | | | Active | 534372027 | | | for | | | | | | | | polypharma | | | | | | | | cy | | | | | | +---------+ + + +--------+ + + | Problem | Blood loss | D50.0 | | | Active | 399383310 | | | anemia | | | | | | +---------+ + + +--------+ + + | Problem | Iron | | D50.9 | | Active | 42978238 | | | deficiency | | | | | | | | anemia | | | | | | +---------+ + + +--------+ + + | Problem | Microcytic | D50.9 | | | Active | 715032327 | | | anemia | | | | | | +---------+ + + +--------+ + + | Problem | Hypothyroi | | E03.9 | | Active | 68067454 | | | dism | | | | | | +---------+ + + +--------+ + + | 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 | | | Active | 64779913 | | | ctive | | | | | | | | disorder | | | | | | +---------+ + + +--------+ + + ALLERGIES + + + + +--------+ | Substance | Reaction | Event Type | Date | Status | + + + + +--------+ | Zoloft | Unknown | Drug Allergy | Dec, | Active | + + + + +--------+ | Tegretol XR | Unknown | Drug Allergy | Dec, | Active | + + + + +--------+ | Depakote | Unknown | Drug Allergy | Dec, | Active | + + + + +--------+ SOCIAL HISTORY No smoking Hx information available PLAN OF CARE + +---------+ | Activity | Details | + +---------+ +---+ | | +---+ + + + | Follow Up | 01/[address] Leahy as scheduled. | | | Reason:null | + + + VITAL SIGNS + + + + | Height | 5ft 7in in | 2016-12-15 | + + + + | Weight | 206 lbs | 2016-12-15 | + + + + | BMI | 32.26 kg/m2 | 2016-12-15 | + + + + | Temperature | 98.6 degrees Fahrenheit | 2016-12-15 | + + + + | Heart Rate | 59 /min | 2016-12-15 | + + + + | Blood pressure systolic | 184 mm Hg | 2016-12-15 | + + + + | Blood pressure diastolic | 83 mm Hg | 2016-12-15 | + + + + MEDICATIONS + [...] | 2015 | | | | | Lancets | [...] + + + +--------+ | Olanzapi | | TAKE 1 | | | | 30 | Active | | ne 2.5 | | TABLET | | | | | | | MG | | BY MOUTH | | | | | | | | | DAILY | | | | | | | | | AT | | | | | | | | | BEDTIME | | | | | | + [...] D | | as | | 16 August, | | | Active | | Personal [...] + + + + + +--------+ | Catapres | Transder | 1 patch | | 14 Nov, | | 30 | Active | | -TTS-3 | mal | to skin | | 2016 | | day(s) | | | 0.3 | WEEKLY | | | | | | | | MG/24HR | | | | | | | [...] Orally | 1 tablet | | 26 Dec, | | 30 | Active | | ne | every HS | | | 2015 | | day(s) | | | Besylate | | | | | | | | | 10 MG | | | | | | | | + + + + + + + +--------+ | Trazodon | | TAKE 1 | | | | 30 | Active | | e HCl 50 | | TABLET | | | | | | | MG | | BY MOUTH | | | | | | | | | DAILY | | | | | | | | | AT | | | | | | | | | BEDTIME | | | | | | + [...] +--------+ | PredniSO | Orally | 1 tab(s) | 24h | | 10 Dec, | 30 days | Active | | NE 5 MG | Once a | | | | 2017 | | | | | day | [...] + + + + + +--------+ RESULTS No Results PROCEDURES + + + + + | Procedure | Date Ordered | Related Diagnosis | Body Site | + + + + + | Office Visit, Est | Dec 15, 2016 | | | | Pt., Level 3 | | | | + + + + + | [facility] MED/CURRENT | Dec 15, 2016 | | | | MED MERGE | | | | + + + + + | DOC MEDS VERIFIED | Dec 15, 2016 | | | | W/PT OR RE | | | | + + + + + IMMUNIZATIONS No Known Immunizations"
--- OUTSIDE RECORDS SUMMARY | ~2016-12-17 | XMS ---
Demographics + + + | Address | [address] | | | [place] [address] | + + + | Preferred Language | Unknown | + + + | Marital Status | Unknown | + + + | Mandaen Affiliation | Unknown | + + + | Race | Unknown | + + + | Ethnic Group | Unknown | + + + Author + + + | Author | [facility] | + + + | Organization | [facility] | + + + | Address | [address] | | | [place] [address] | + + + | Phone | | + + + Care Team Providers + + + + | Care Mail Handler Name | Role | Phone | + + + + Unavailable | Unavailable | + + + + PROBLEMS +---------+ + + +--------+ + + | Type | Condition | ICD9-CM | [id number] | Onset | Condition | SNOMED | | | | Code | Code | Dates | Status | Code | +---------+ + + +--------+ + + | Problem | Type 2 | | E11.49 | | Active | [id number] | | | diabetes | | | [...] | N28.9 | | | Active | 180100981 | | | insufficie | | | | | | | | ncy | | | | | | +---------+ + + +--------+ + + | Problem | Diabetes | E11.9 | | | Active | 449110514 | | | mellitus | | | | | | | | type 2 in | | | | | | | | nonobese | | | | | | +---------+ + + +--------+ + + | Problem | HTN | | I10 | | Active | 64134794 | | | (hypertens | | | | | | | | ion) | | | | | | +---------+ + + +--------+ + + | Problem | Current | Z79.52 | | | Active | [id number] | | | chronic | | | | | [address] | | | use of | | | | | | | | systemic | | | | | | | | steroids | | | | | | +---------+ + + +--------+ + + | Problem | Seropositi | M05.9 | | | Active | 685408078 | | | ve | | | | | | | | rheumatoid | | | | | | | | arthritis | | | | | | +---------+ + + +--------+ + + | Problem | Osteoporos | | M81.0 | | Active | 45217937 | | | is | | | | | | +---------+ + + +--------+ + + | Problem | Microcytos | R71.8 | | | Active | 593258581 | | | is | | | | | | +---------+ + + +--------+ + + | Problem | Rheumatoid | M06.9 | | | Active | 93803267 | | | arthritis | | | | | | +---------+ + + +--------+ + + | Problem | Bipolar 1 | | F31.9 | | Active | 173620947 | | | disorder | | | | | | +---------+ + + +--------+ + + | Problem | Restless | | G25.81 | | Active | 61641382 | | | leg | | | | | | | | syndrome | | | | | | +---------+ + + +--------+ + + | Problem | ASCVD | I25.10 | | | Active | 22193230 | | | (arteriosc | | | | | | | | lerotic | | | | | | | | cardiovasc | | | | | | | | ular | | | | | | | | disease) | | | | | | +---------+ + + +--------+ + + | Problem | Hyperlipid | | E78.5 | | Active | 99973071 | | | emia | | | | | | +---------+ + + +--------+ + + | Problem | Hypertensi | | I10 | | Active | 60630583 | | | on | | | | | | +---------+ + + +--------+ + + | Problem | Chronic | | G89.4 | | Active | 856292631 | | | pain | | | | | | | | syndrome | | | | | | +---------+ + + +--------+ + + | Problem | Immunosupp | D89.9 | | | Active | 454424397 | | | ressed | | | | | | | | status | | | | | | +---------+ + + +--------+ + + | Problem | High risk | Z79.899 | | | Active | 685683083 | | | medication | | | [...] | Z91.89 | | | Active | 171081923 | | | for | | | | | | | | polypharma | | | | | | | | cy | | | | | | +---------+ + + +--------+ + + | Problem | Blood loss | D50.0 | | | Active | 240437530 | | | anemia | | | | | | +---------+ + + +--------+ + + | Problem | Iron | | D50.9 | | Active | 31400186 | | | deficiency | | | | | | | | anemia | | | | | | +---------+ + + +--------+ + + | Problem | Microcytic | D50.9 | | | Active | 823932871 | | | anemia | | | | | | +---------+ + + +--------+ + + | Problem | Hypothyroi | | E03.9 | | Active | 36397784 | | | dism | | | | | | +---------+ + + +--------+ + + | 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
--- OUTSIDE RECORDS SUMMARY | ~2016-12-17 | XMS ---
Demographics + + + | Address | [address] | | | [place] [address] | + + + | Preferred Language | Unknown | + + + | Marital Status | Unknown | + + + | Baptism Affiliation | Unknown | + + + | Race | Unknown | + + + | Ethnic Group | Unknown | + + + Author + + + | Author | [facility] | + + + | Organization | [facility] | + + + | Address | [address] | | | [place] [address] | + + + | Phone | | + + + Care Team Providers + + + + | Care Water Treatment Technician Name | Role | Phone | + + + + Unavailable | Unavailable | + + + + PROBLEMS +---------+ + + +--------+ + + | Type | Condition | ICD9-CM | [id number] | Onset | Condition | SNOMED | | | | Code | Code | Dates | Status | Code | +---------+ + + +--------+ + + | Problem | Type 2 | | E11.49 | | Active | 957431089 | | | diabetes | | | [...] | N28.9 | | | Active | 637356786 | | | insufficie | | | | | | | | ncy | | | | | | +---------+ + + +--------+ + + | Problem | Diabetes | E11.9 | | | Active | 746359189 | | | mellitus | | | | | | | | type 2 in | | | | | | | | nonobese | | | | | | +---------+ + + +--------+ + + | Problem | HTN | | I10 | | Active | 54905739 | | | (hypertens | | | | | | | | ion) | | | | | | +---------+ + + +--------+ + + | Problem | Current | Z79.52 | | | Active | 7285324326 | | | chronic | | | | | [address] | | | use of | | | | | | | | systemic | | | | | | | | steroids | | | | | | +---------+ + + +--------+ + + | Problem | Seropositi | M05.9 | | | Active | 517020280 | | | ve | | | | | | | | rheumatoid | | | | | | | | arthritis | | | | | | +---------+ + + +--------+ + + | Problem | Osteoporos | | M81.0 | | Active | 26659010 | | | is | | | | | | +---------+ + + +--------+ + + | Problem | Microcytos | R71.8 | | | Active | 055142102 | | | is | | | | | | +---------+ + + +--------+ + + | Problem | Rheumatoid | M06.9 | | | Active | 51015452 | | | arthritis | | | | | | +---------+ + + +--------+ + + | Problem | Bipolar 1 | | F31.9 | | Active | 883939987 | | | disorder | | | | | | +---------+ + + +--------+ + + | Problem | Restless | | G25.81 | | Active | 21077360 | | | leg | | | | | | | | syndrome | | | | | | +---------+ + + +--------+ + + | Problem | ASCVD | I25.10 | | | Active | 26873208 | | | (arteriosc | | | | | | | | lerotic | | | | | | | | cardiovasc | | | | | | | | ular | | | | | | | | disease) | | | | | | +---------+ + + +--------+ + + | Problem | Hyperlipid | | E78.5 | | Active | 38977578 | | | emia | | | | | | +---------+ + + +--------+ + + | Problem | Hypertensi | | I10 | | Active | 88271107 | | | on | | | | | | +---------+ + + +--------+ + + | Problem | Chronic | | G89.4 | | Active | 638240428 | | | pain | | | | | | | | syndrome | | | | | | +---------+ + + +--------+ + + | Problem | Immunosupp | D89.9 | | | Active | 903439850 | | | ressed | | | | | | | | status | | | | | | +---------+ + + +--------+ + + | Problem | High risk | Z79.899 | | | Active | 063230240 | | | medication | | | [...] | Z91.89 | | | Active | 955443683 | | | for | | | | | | | | polypharma | | | | | | | | cy | | | | | | +---------+ + + +--------+ + + | Problem | Blood loss | D50.0 | | | Active | 930266533 | | | anemia | | | | | | +---------+ + + +--------+ + + | Problem | Iron | | D50.9 | | Active | 71456534 | | | deficiency | | | | | | | | anemia | | | | | | +---------+ + + +--------+ + + | Problem | Microcytic | D50.9 | | | Active | 101803304 | | | anemia | | | | | | +---------+ + + +--------+ + + | Problem | Hypothyroi | | E03.9 | | Active | 35250865 | | | dism | | | | | | +---------+ + + +--------+ + + | 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 | | | Active | 30691020 | | | ctive | | | | | | | | disorder | | | | | | +---------+ + + +--------+ + + ALLERGIES + + + + +--------+ | Substance | Reaction | Event Type | Date | Status | + + + + +--------+ | Zoloft | Unknown | Drug Allergy | Nov, | Active | + + + + +--------+ | Tegretol XR | Unknown | Drug Allergy | Nov, | Active | + + + + +--------+ | Depakote | Unknown | Drug Allergy | Nov, | Active | + + + + +--------+ SOCIAL HISTORY No smoking Hx information available PLAN OF CARE + +---------+ | Activity | Details | + +---------+ +---+ | | +---+ + + + | Follow Up | 2 Months Reason:null | + + + VITAL SIGNS + + + + | Height | 5ft 7in in | 2016-11-17 | + + + + | Weight | 207.6 lbs | 2016-11-17 | + + + + | BMI | 32.51 kg/m2 | 2016-11-17 | + + + + | Temperature | 98.1 degrees Fahrenheit | 2016-11-17 | + + + + | Heart Rate | 61 /min | 2016-11-17 | + + + + | Blood pressure systolic | 181 mm Hg | 2016-11-17 | + + + + | Blood pressure diastolic | 82 mm Hg | 2016-11-17 | + + + + MEDICATIONS + [...] +--------+ | PredniSO | Orally | 1 ml | 24h | | | | Active | | NE 5 | Once a | | | | | | | | MG/ML | day | | | | | [...] Transder | 1 patch | | 14 Aug, | | 30 | Active | | [...] | Orally | 1 tablet | | Dec, | | 30 | Active | [...] + + | Office Visit, Est | Nov 17, 2016 | | | | Pt., Level 4 | | | | + + + + + | [facility] MED/CURRENT | Nov 17, 2016 | | | | MED MERGE | | | | + + + + + IMMUNIZATIONS No Known Immunizations"
== END 2016-12-17 19:02 | disposition home or self-care (01) ==
LOC: ED 16:59
DX: S80.12XA Contusion of left lower leg, initial encounter (principal); E11.9 Type 2 diabetes mellitus without complications; M06.9 Rheumatoid arthritis, unspecified; I10 Essential (primary) hypertension; M81.0 Age-related osteoporosis without current pathological fracture; Z96.661 Presence of right artificial ankle joint; Z90.710 Acquired absence of both cervix and uterus; Z98.890 Other specified postprocedural states; Z87.891 Personal history of nicotine dependence; Z86.73 Personal history of transient ischemic attack (TIA), and cerebral infarction without residual deficits; Z88.8 Allergy status to other drugs, medicaments and biological substances; Z79.899 Other long term (current) drug therapy; Z79.891 Long term (current) use of opiate analgesic; Z79.52 Long term (current) use of systemic steroids; Z79.82 Long term (current) use of aspirin; W08.XXXA Fall from other furniture, initial encounter
CPT/HCPCS: 73590; 99283